=== PATIENT | male | born 1995 | race Caucasian/White ===

== ENCOUNTER 2020-04-01 17:11 | Emergency (ER) | payer OTHER ==
[2020-04-01 17:21] VITALS: BP 136/90; PULSE 88; RESP 18; TEMP 98.6
[2020-04-01] MEDS ORDERED: LIDOCAINE 1% INJ 10MG/ML (20 ML MDV) SQ ONE (17:31)
[2020-04-01] MEDS ORDERED: CEPHALEXIN 500 MG CAP PO STA (17:58)
[2020-04-01] MEDS ORDERED: CEPHALEXIN 500MG STARTER PACK 4 CAP BTL PO STA (17:58)
--- NOTE | 2020-04-01 17:58 | ED ---
General Adult HPI - General Chief complaint: Skin/Abscess/Foreign Body Stated complaint: fish hook in finger Time Seen by Provider: 04/01/20 17:23 Source: patient, RN notes reviewed, old records reviewed Mode of arrival: ambulatory Limitations: no limitations - History of Present Illness Initial comments: 24-year-old male patient with the chief complaint of fishhook to his left first digit. Patient reports that his tetanus was updated recently. He denies any other complaints. Constitutional: NAD, AOX3, Pt has pleasant affect. HEENT: NC/AT, trachea midline, neck supple, no lymphadenopathy. Posterior pharynx non erythematous, without exudates. External ears appear normal, without discharge. Mucous membranes moist. Eyes PERRLA, EOM intact. There is no scleral icterus. No pallor noted. Cardiopulmonary: RRR, no murmurs, rubs or gallops, no JVD noted. Lungs CTAB in anterior and posterior alfonso. No peripheral edema. Neuro: CN II-XII grossly intact. No raccon eyes, no marcus sign, MSK: [place] noted to pad of first digit left hand distal to DIP joint. Full active range of motion of digit. Cap refill less than 2 seconds. Area was irrigated. [place] was removed with pliers. Full range of motion of digit before and after procedure. 24-year-old male patient presents to ED for fishhook to digit. This fishhook was removed. The aden was intact upon removal. Patient flexion range of motion. Prior to receiving antibiotic prescription patient eloped from emergency department. His antibiotics were sent to patient's pharmacy. Patient states that his tetanus was recently updated. Case disucssed with Dr. mAaya. - Related Data Previous Rx's Medication Instructions Recorded Cephalexin [Keflex] 500 mg PO Q6HR 7 Days #28 cap 04/01/20 Allergies Allergy/AdvReac Type Severity Reaction Status Date / Time No Known Allergies Allergy Verified 04/01/20 17:17 Review of Systems ROS Statement: Those systems with pertinent positive or pertinent negative responses have been documented in the HPI. ROS Other: All systems not noted in ROS Statement are negative. Past Medical History Past Medical History: No Reported History History of Any Multi-Drug Resistant Organisms: None Reported Past Surgical History: No Surgical Hx Reported Past Psychological History: No Psychological Hx Reported Smoking Status: Current every day smoker Past Alcohol Use History: Occasional Past Drug Use History: Marijuana General Exam Limitations: no limitations Course Vital Signs 04/01/20 17:18 Temperature 98.6 F Pulse Rate 88 Respiratory 18 Rate Blood Pressure 136/90 O2 Sat by Pulse 97 Oximetry Procedures - Forgein Body Removal Soft Tissue Consent Obtained: verbal consent Site: hand Anesthetic Used: lidocaine 1% Amount (mLs): 2 Foreign Body Suspected: Fish Hook Foreign Body Removed: yes Foreign Body Removal Technique: Instrumentation Patient Tolerated Procedure: well, no complications Medical Decision Making - Medical Decision Making 24-year-old male patient with the chief complaint of fishhook to his left first digit. Patient reports that his tetanus was updated recently. He denies any other complaints. Constitutional: NAD, AOX3, Pt has pleasant affect. HEENT: NC/AT, trachea midline, neck supple, no lymphadenopathy. Posterior pharynx non erythematous, without exudates. External ears appear normal, without discharge. Mucous membranes moist. Eyes PERRLA, EOM intact. There is no scleral icterus. No pallor noted. Cardiopulmonary: RRR, no murmurs, rubs or gallops, no JVD noted. Lungs CTAB in anterior and posterior alfonso. No peripheral edema. Neuro: CN II-XII grossly intact. No raccon eyes, no marcus sign, MSK: [place] noted to pad of first digit left hand distal to DIP joint. Full active range of motion of digit. Cap refill less than 2 seconds. Area was irrigated. [place] was removed with pliers. Full range of motion of digit before and after procedure. 24-year-old male patient presents to ED for fishhook to digit. This fishhook was removed. The aden was intact upon removal. Patient flexion range of motion. Prior to receiving antibiotic prescription patient eloped from emergency department. His antibiotics were sent to patient's pharmacy. Patient states that his tetanus was recently updated. Case disucssed with Dr. Amaya. Disposition Clinical Impression: Fish hook injury of finger Disposition: Left Against Medical Advice Condition: Stable Instructions (If sedation given, give patient instructions): Laceration (ED) Additional Instructions: Take antibiotics as directed. Follow-up with primary care provider tomorrow. Return to ER if any signs or symptoms of infection develop. Please monitor for signs and symptoms of infection including: redness, warmth, drainage, discharge. Please return to ED if these signs or symptoms occur, new signs or symptoms develop or if condition worsens in anyway. Prescriptions: Cephalexin [Keflex] 500 mg PO Q6HR 7 Days #28 cap Is patient prescribed a controlled substance at d/c from ED?: No Referrals: None,Stated [Primary Care Provider] - 1-2 days Christin Day MD [REFERRING] - 1-2 days
== END 2020-04-01 18:09 | disposition left against medical advice (07) ==
LOC: EC 17:11
DX: S69.92XA Unspecified injury of left wrist, hand and finger(s), initial encounter (principal); Z53.29 Procedure and treatment not carried out because of patient's decision for other reasons; F17.200 Nicotine dependence, unspecified, uncomplicated; W45.8XXA Other foreign body or object entering through skin, initial encounter
CPT/HCPCS: 99283; 10120; J2001

== ENCOUNTER 2020-06-06 23:20 | Emergency (ER) | payer OTHER ==
[2020-06-06 23:35] VITALS: RESP 18; TEMP 98.4
[2020-06-07] MEDS ORDERED: ZIPRASIDONE 20 MG CAP PO STA (01:09)
--- NOTE | 2020-06-07 07:17 | ED ---
Psych HPI - General Source: patient Mode of arrival: ambulatory - History of Present Illness MD Complaint: other -: days(s) Associated Psychiatric Symptoms: auditory hallucinations, delusions Quality: constant Improves With: none Worsens With: none Associated Symptoms: insomnia Treatments Prior to Arrival: none <Chad Petersen - Last Filed: 06/07/20 07:12> <Percy Carter - Last Filed: 06/07/20 12:34> - General Chief Complaint: Psychiatric Symptoms Stated Complaint: Mental Health Time Seen by Provider: 06/06/20 23:30 - Related Data Home Medications Medication Instructions Recorded Confirmed No Known Home Medications 06/07/20 06/07/20 Allergies Allergy/AdvReac Type Severity Reaction Status Date / Time No Known Allergies Allergy Verified 06/07/20 08:57 Review of Systems ROS Other: All systems not noted in ROS Statement are negative. Constitutional: Denies: fever, chills Respiratory: Denies: cough, dyspnea Cardiovascular: Denies: chest pain, palpitations Gastrointestinal: Denies: abdominal pain, vomiting, diarrhea Genitourinary: Denies: dysuria, hematuria Musculoskeletal: Denies: back pain Skin: Denies: rash Neurological: Denies: headache, weakness, numbness Psychiatric: Reports: other <JagmaryChad - Last Filed: 06/07/20 07:12> ROS Other: All systems not noted in ROS Statement are negative. <Pecry Carter - Last Filed: 06/07/20 12:34> ROS Statement: Those systems with pertinent positive or pertinent negative responses have been documented in the HPI. Past Medical History Past Medical History: No Reported History History of Any Multi-Drug Resistant Organisms: None Reported Past Surgical History: No Surgical Hx Reported Past Psychological History: No Psychological Hx Reported Past Alcohol Use History: Occasional Past Drug Use History: Marijuana <JagmaryChad - Last Filed: 06/07/20 07:12> General Exam Limitations: no limitations General appearance: alert, in no apparent distress Head exam: Present: atraumatic, normocephalic Eye exam: Present: normal appearance. Absent: scleral icterus, conjunctival injection ENT exam: Present: normal oropharynx Neck exam: Present: normal inspection Respiratory exam: Present: normal lung sounds bilaterally. Absent: respiratory distress, wheezes, rales, rhonchi, stridor Cardiovascular Exam: Present: regular rate, normal rhythm, normal heart sounds. Absent: systolic murmur, diastolic murmur, rubs, gallop GI/Abdominal exam: Present: soft. Absent: distended, tenderness, guarding, rebound, rigid Extremities exam: Present: normal inspection, normal capillary refill. Absent: pedal edema, calf tenderness Back exam: Present: normal inspection. Absent: CVA tenderness (R), CVA tenderness (L) Neurological exam: Present: alert, oriented X3 Psychiatric exam: Present: depressed, manic, suicidal ideation. Absent: agitated, anxious, homicidal ideation Skin exam: Present: warm, dry, intact, normal color. Absent: rash <Chad Petersen - Last Filed: 06/07/20 07:12> Course Vital Signs 06/06/20 23:28 Temperature 98.4 F Pulse Rate 100 Respiratory 18 Rate Blood Pressure 146/88 O2 Sat by Pulse 98 Oximetry Medical Decision Making <Percy Carter - Last Filed: 06/07/20 12:34> - Medical Decision Making Patient was seen by mental health services with plan for discharge. Patient reevaluated and resting comfortably in bed. No suicidal thoughts. Patient states he feels he is comfortable ago. Patient states he just had a rough past couple of days. Patient was given referrals for mental health follow-up is agreeable to follow-up. (Percy Carter) Disposition <Chad Petersen - Last Filed: 06/07/20 07:12> Is patient prescribed a controlled substance at d/c from ED?: No Time of Disposition: 12:34 <Percy Carter - Last Filed: 06/07/20 12:34> Clinical Impression: Acute anxiety, Auditory hallucinations Disposition: HOME SELF-CARE Condition: Stable Instructions (If sedation given, give patient instructions): Hallucinations (ED), Anxiety (ED) Additional Instructions: Please follow-up with mental health services as directed. Return for thoughts of self-harm, worsening symptoms or other concerns. Referrals: Oli Jean Baptiste MD [STAFF PHYSICIAN] - 1-2 days
[2020-06-07 12:53] VITALS: BP 127/74; PULSE 80
== END 2020-06-07 12:52 | disposition home or self-care (01) ==
LOC: EC 23:20
DX: F41.9 Anxiety disorder, unspecified (principal); R44.0 Auditory hallucinations
CPT/HCPCS: 82075; 99285

== ENCOUNTER 2023-02-27 13:07 | Emergency (ER) | payer OTHER ==
[2023-02-27] MEDS ORDERED: ALBUTEROL NEBULIZED 2.5 MG/3 ML INHALATION STA (13:11)
[2023-02-27] MEDS ORDERED: IPRATROPIUM 0.5 MG/2.5 ML NEBU INHALATION STA (13:11)
[2023-02-27 13:17] VITALS: BP 99/56; TEMP 98.1
[2023-02-27 13:32] LABS: Basophils % (A) 0 %; Eosinophils # (A) 0.2 k/uL (0-0.7); Eosinophils % (A) 2 %; HCT 46.3 % (39.0-53.0); HGB 15.6 gm/dL (13.0-17.5); Lymphocytes # (A) 0.8 k/uL (1.0-4.8); Lymphocytes % (A) 10 %; MCH 31.2 pg (25.0-35.0); MCHC 33.7 g/dL (31.0-37.0); MCV 92.4 fL (80.0-100.0); Mean Platelet Volume 7.1; Monocytes # (A) 0.1 k/uL (0-1.0); Monocytes % (A) 1 %; Neutrophils # (A) 6.8 k/uL (1.3-7.7); Neutrophils % (A) 87 %; Platelet Count 361 k/uL (150-450); RBC 5.01 m/uL (4.30-5.90); RDW 13.5 % (11.5-15.5); WBC 7.9 k/uL (3.8-10.6)
[2023-02-27 13:40] VITALS: PULSE 110; RESP 22
[2023-02-27 13:45] LABS: ALT 26 U/L (4-49); AST 40 U/L (17-59); African American GFR (CKD) >90 (>60 ml/min/1.73 sqM); Albumin 4.5 g/dL (3.5-5.0); Alkaline Phosphatase 53 U/L (38-126); Anion Gap 13 mmol/L; Blood Urea Nitrogen 9 mg/dL (9-20); Calcium 9.2 mg/dL (8.4-10.2); Carbon Dioxide 22 mmol/L (22-30); Chloride 104 mmol/L (98-107); Glucose 153 mg/dL (74-99); Non-African American GFR(CKD) >90 (>60 ml/min/1.73 sqM); Potassium 2.9 mmol/L (3.5-5.1); Sodium 139 mmol/L (137-145); Total Bilirubin 1.1 mg/dL (0.2-1.3); Total Protein 7.3 g/dL (6.3-8.2)
--- NOTE | 2023-02-27 13:56 | ED ---
General Adult HPI - General Chief complaint: Shortness of Breath Stated complaint: DIMITRI,Drug use Time Seen by Provider: 02/27/23 13:07 Source: patient, RN notes reviewed, old records reviewed Mode of arrival: ambulatory Limitations: no limitations - History of Present Illness Initial comments: This is a 27-year-old male who presents emergency Department after he injected cocaine. About 45 minutes after he injected he started having difficulty breathing and EMS was called. Patient states he was having some chest pain especially with deep breathing at the time he thought he just needed an inhaler. Patient continued experiencing shortness of breath while in the emergency department. Patient denied any recent fever chills or cough. Patient states he only had chest pain with deep breathing. Patient states he thinks the cocaine might of had fentanyl in. According to EMS they did give Narcan it did seem to bring him around a little bit quicker. According to the first responders he was [place] when they got there and he started to come around after the Narcan. - Related Data Home Medications Medication Instructions Recorded Confirmed No Known Home Medications 06/07/20 06/07/20 Allergies Allergy/AdvReac Type Severity Reaction Status Date / Time No Known Allergies Allergy Verified 06/07/20 08:57 Review of Systems ROS Statement: Those systems with pertinent positive or pertinent negative responses have been documented in the HPI. ROS Other: All systems not noted in ROS Statement are negative. Past Medical History Past Medical History: Asthma History of Any Multi-Drug Resistant Organisms: None Reported Past Surgical History: No Surgical Hx Reported Past Psychological History: No Psychological Hx Reported Smoking Status: Vaper Past Alcohol Use History: Occasional Past Drug Use History: Cocaine, Marijuana General Exam - General Exam Comments Initial Comments: GENERAL: Patient is well-developed and well-nourished. Patient is nontoxic and well- hydrated and is in mild distress. ENT: Neck is soft and supple. No significant lymphadenopathy is noted. Oropharynx is clear. Moist mucous membranes. Neck has full range of motion without eliciting any pain. EYES: The sclera were anicteric and conjunctiva were pink and moist. Extraocular movements were intact and pupils were equal round and reactive to light. Eyelids were unremarkable. PULMONARY: Patient had some expiratory wheezing. CARDIOVASCULAR: Patient was tachycardic ABDOMEN: Soft and nontender with normal bowel sounds. SKIN: Skin is clear with no lesions or rashes and otherwise unremarkable. NEUROLOGIC: Patient is alert and oriented x3. Cranial nerves II through XII are grossly intact. Motor and sensory are also intact. Normal speech, volume and content. Symmetrical smile. MUSCULOSKELETAL: Normal extremities with adequate strength and full range of motion. LYMPHATICS: No significant lymphadenopathy is noted PSYCHIATRIC: Normal psychiatric evaluation. Limitations: no limitations Course Vital Signs 02/27/23 02/27/23 02/27/23 13:10 13:28 13:33 Temperature 98.1 F Pulse Rate 121 H 102 H 110 H Respiratory 18 16 22 Rate Blood Pressure 99/56 O2 Sat by Pulse 89 L Oximetry Medical Decision Making - Medical Decision Making EKG shows sinus tachycardia at 110 bpm IN interval 119 QRSs 88 QT interval 360 QTC is 425. EKG shows no significant ST segment elevation. Was pt. sent in by a medical professional or institution (, [facility], HAZARDOUS SUBSTANCES SCIENTIST, urgent care, hospital, or long-term...) When possible be specific @ -[No] Did you speak to anyone other than the patient for history (EMS, parent, family, police, friend...)? What history was obtained from this source @ -EMS gave quite a bit of the history Did you review nursing and triage notes (agree or disagree)? Why? @ -[I reviewed and agree with nursing and triage notes] Were old charts reviewed (outside hosp., previous admission, EMS record, old EKG, old radiological studies, urgent care reports/EKG's, long-term records)? Report findings @ -[No old charts were reviewed] Differential Diagnosis (chest pain, altered mental status, abdominal pain women, abdominal pain men, vaginal bleeding, weakness, fever, dyspnea, syncope, headache, dizziness, GI bleed, back pain, seizure, CVA, palpatations, mental health, musculoskeletal)? @ -Differential Dyspnea: Coronary syndrome, arrhythmia, tamponade, asthma, COPD, pulmonary embolism, pneumonia, pneumothorax, pulmonary effusion, anaphylaxis, diabetic ketoacidosis, flailed chest, pulmonary contusion, diaphragmatic rupture, anemia, neuromuscular, this is not meant to be an all-inclusive list. EKG interpreted by me (3pts min.). @ -[As above] X-rays interpreted by me (1pt min.). @ -[None done] CT interpreted by me (1pt min.). @ -[None done] U/S interpreted by me (1pt. min.). @ -[None done] What testing was considered but not performed or refused? (CT, X-rays, U/S, labs)? Why? @ -[None] What meds were considered but not given or refused? Why? @ -[None] Did you discuss the management of the patient with other professionals (ervin rodríguez i.e. , PA, HAZARDOUS SUBSTANCES SCIENTIST, lab, RT, psych nurse, web content & social media manager, underwriting director, teacher, chief supply chain officer, medical case manager)? Give summary @ -[No] Was smoking cessation discussed for >3mins.? @ -[No] Was critical care preformed (if so, how long)? @ -[No] Were there social determinants of health that impacted care today? How? (Homelessness, low income, unemployed, alcoholism, drug addiction, transpo rtation, low edu. Level, literacy, decrease access to med. care, alf, rehab)? @ -[No] Was there de-escalation of care discussed even if they declined (Discuss DNR or withdrawal of care, Hospice)? DNR status @ -[No] What co-morbidities impacted this encounter? (DM, HTN, Smoking, COPD, CAD, Cancer, CVA, ARF, Chemo, Hep., AIDS, mental health diagnosis, sleep apnea, morbid obesity)? @ -[None] Was patient admitted / discharged? Hospital course, mention meds given and route, prescriptions, significant lab abnormalities, going to OR and other pertinent info. @ -Patient was hostile staff as soon as he arrived. Patient called me back into the room after about 40 minutes of being here he stated he wanted to leave AMA. Patient states he is upset because no one was attending to his request of getting a glass of water. Patient states he is given leave and go home and uses inhaler. Patient was informed that this could lead to significant morbidity mortality he did not care he wanted to leave. Undiagnosed new problem with uncertain prognosis? @ -[No] Drug Therapy requiring intensive monitoring for toxicity (Heparin, Nitro, Insulin, Cardizem)? @ -[No] Were any procedures done? @ -[No] Diagnosis/symptom? @ -Drug overdose Acute, or Chronic, or Acute on Chronic? @ -Acute Uncomplicated (without systemic symptoms) or Complicated (systemic symptoms)? @ -Complicated Side effects of treatment? @ -[No] Exacerbation, Progression, or Severe Exacerbation? @ -[No] Poses a threat to life or bodily function? How? (Chest pain, [place], [place], pneumonia, PE, COPD, DKA, ARF, appy, cholecystitis, CVA, Diverticulitis, Homicidal, Suicidal, threat to staff... and all critical care pts) @ -Yes since we have not fully worked this patient up we do not know the outcome this could possibly have damaged his heart or head fluid on the lungs which could lead to hypoxia and end organ dysfunction - Lab Data Result diagrams: 02/27/23 13:22 02/27/23 13:11 Lab Results 02/27/23 02/27/23 02/27/23 Range/Units 13:11 13:22 13:22 WBC 7.9 (3.8-10.6) k/uL RBC 5.01 (4.30-5.90) m/uL Hgb 15.6 (13.0-17.5) gm/dL Hct 46.3 (39.0-53.0) % MCV 92.4 (80.0-100.0) fL MCH 31.2 (25.0-35.0) pg MCHC 33.7 (31.0-37.0) g/dL RDW 13.5 (11.5-15.5) % Plt Count 361 (150-450) k/uL MPV 7.1 Neutrophils % 87 % Lymphocytes % 10 % Monocytes % 1 % Eosinophils % 2 % Basophils % 0 % Neutrophils # 6.8 (1.3-7.7) k/uL Lymphocytes # 0.8 L (1.0-4.8) k/uL Monocytes # 0.1 (0-1.0) k/uL Eosinophils # 0.2 (0-0.7) k/uL Basophils # 0.0 (0-0.2) k/uL Sodium 139 (137-145) mmol/L Potassium 2.9 L (3.5-5.1) mmol/L Chloride 104 (98-107) mmol/L Carbon Dioxide 22 (22-30) mmol/L Anion Gap 13 mmol/L BUN 9 (9-20) mg/dL Creatinine 1.00 (0.66-1.25) mg/dL Est GFR (CKD-EPI)AfAm >90 (>60 ml/min/1.73 sqM) Est GFR (CKD-EPI)NonAf >90 (>60 ml/min/1.73 sqM) Glucose 153 H (74-99) mg/dL Plasma Lactic Acid Gino 1.5 (0.7-2.0) mmol/L Calcium 9.2 (8.4-10.2) mg/dL Total Bilirubin 1.1 (0.2-1.3) mg/dL AST 40 (17-59) U/L ALT 26 (4-49) U/L Alkaline Phosphatase 53 (38-126) U/L Total Protein 7.3 (6.3-8.2) g/dL Albumin 4.5 (3.5-5.0) g/dL Disposition Clinical Impression: Drug overdose, Cocaine abuse Disposition: Left Against Medical Advice Referrals: None,Stated [Primary Care Provider] - 1-2 days Time of Disposition: 13:55
== END 2023-02-27 14:06 | disposition left against medical advice (07) ==
LOC: EC 13:07
DX: T40.5X1A Poisoning by cocaine, accidental (unintentional), initial encounter (principal); F14.10 Cocaine abuse, uncomplicated; J45.909 Unspecified asthma, uncomplicated; F17.290 Nicotine dependence, other tobacco product, uncomplicated; F12.90 Cannabis use, unspecified, uncomplicated; Z53.29 Procedure and treatment not carried out because of patient's decision for other reasons
CPT/HCPCS: 36415; 80053; 83605; 84484; 85025; 94640; 99285